=== PATIENT | female | born 2005 | race Caucasian/White ===

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

== ENCOUNTER 2024-01-11 14:52 | Outpatient (CLI) | payer OTHER ==
--- NOTE | 2024-01-12 17:58 | XRAY Report ---
PROCEDURE: Ankle 3+V LT INDICATIONS: ANKLE JOINT PAIN TECHNIQUE: 3 views of the ankle were acquired. COMPARISON: X-ray foot 01/11/2024 FINDINGS: Bones: No fractures or dislocations. Ankle mortise is normally aligned. No suspicious bony lesions . Soft tissues: No tibiotalar joint effusion. Achilles tendon appears normal. IMPRESSION: No visualized acute fracture or dislocation. However, occult injury cannot be excluded. Recommend reta rt interval imaging follow-up in 7-10 days as clinically indicated for additional evaluation. Reviewed by: Elicia Tolentino MD on 01/12/2024 5:57 PM PDT Approved by: Elicia Tolentino MD on 01/12/2024 5:57 PM PDT Station ID: [id number]
--- NOTE | 2024-01-12 17:59 | XRAY Report ---
PROCEDURE: Foot 3+V LT INDICATIONS: FOOT PAIN TECHNIQUE: 3 views of the foot were acquired. COMPARISON: X-ray ankle 01/11/2024. FINDINGS: Bones: No fractures or dislocations. No suspicious bony lesions. Soft tissues: No tibiotalar joint effusion. Achilles tendon appears normal. IMPRESSION: No visualized acute fracture or dislocation. However, occult injury cannot be excluded. Recommend reta rt interval imaging follow-up in 7-10 days as clinically indicated for additional evaluation. Reviewed by: Elicia Tolentino MD on 01/12/2024 5:57 PM PDT Approved by: Elicia Tolentino MD on 01/12/2024 5:57 PM PDT Station ID: [id number]
== END 2024-01-11 14:53 | disposition home or self-care (01) ==
LOC: DI 14:52
PROVIDERS: ATTEND Physician Assistant
DX: M25.572 Pain in left ankle and joints of left foot (principal); M79.672 Pain in left foot